=== PATIENT | male | born 1995 | race Two or more races ===

== ENCOUNTER 2021-02-05 01:51 | Emergency (ER) | payer MEDICAID ==
[~2021-02-05] VITALS: Ht 180.3 cm; Wt 96.9 kg
[2021-02-05 01:54] VITALS: BP 148/82
--- NOTE | 2021-02-05 04:20 | NUR ---
COVID SWAB WALKED TO LAB
--- NOTE | 2021-02-05 04:33 | NUR ---
Patient/Caregiver given discharge instructions and they have confirmed that they understand the instructions. Patient ambulatory with steady gait. NAD, all questions answered appropriately, denies additional needs at this time. No personal belongings left in room after discharge.
== END 2021-02-05 04:39 | disposition home or self-care (01) ==
LOC: ED 02:30
DX: R06.00 Dyspnea, unspecified (principal); F10.10 Alcohol abuse, uncomplicated; R94.31 Abnormal electrocardiogram [ECG] [EKG]; Z20.822 Contact with and (suspected) exposure to COVID-19; Y90.9 Presence of alcohol in blood, level not specified
CPT/HCPCS: 93005; 99284; U0003; U0005